=== PATIENT | male | born 1990 | race Caucasian/White ===

== ENCOUNTER 2017-11-09 20:34 | Emergency (ER) | payer OTHER ==
[2017-11-09 21:14] VITALS: BP 148/89; PULSE 70; RESP 16; TEMP 98.4
--- NOTE | 2017-11-09 21:28 | ED ---
Skin/Abscess/FB HPI - General Chief complaint: Skin/Abscess/Foreign Body Stated complaint: bump on neck Time Seen by Provider: 11/09/17 21:16 Source: patient, RN notes reviewed Mode of arrival: ambulatory Limitations: no limitations - History of Present Illness Initial comments: This is a 26-year-old male who presents to the emergency department with chief complaint of bump on neck. Patient states that on his drive to the emergency department he noticed a bump on the left side of his neck. He states he has not noticed this before. He denies any recent fevers or chills, cough, sore throat, ear pain, chest pain or shortness of breath, abdominal pain, nausea or vomiting. States that the bump is not painful, only becoming painful when he pushes really hard. - Related Data Previous Rx's Medication Instructions Recorded Cyclobenzaprine [Flexeril] 10 mg PO TID #15 tab 02/01/17 Ibuprofen [Motrin] 600 mg PO Q8HR PRN #30 tab 02/01/17 Allergies Allergy/AdvReac Type Severity Reaction Status Date / Time No Known Allergies Allergy Verified 11/09/17 21:14 Review of Systems ROS Statement: Those systems with pertinent positive or pertinent negative responses have been documented in the HPI. ROS Other: All systems not noted in ROS Statement are negative. Past Medical History Past Medical History: No Reported History History of Any Multi-Drug Resistant Organisms: None Reported Past Surgical History: No Surgical Hx Reported Past Psychological History: No Psychological Hx Reported Smoking Status: Never smoker Past Alcohol Use History: Occasional Past Drug Use History: None Reported General Exam - General Exam Comments Initial Comments: General: Awake and alert, well-developed; in no apparent distress. HEENT: Head atraumatic, normocephalic. Pupils are equal, round and reactive to light. Extraocular movements intact. Oropharynx moist without erythema or exudate. Neck: Supple. Normal ROM. Firm, mobile mass measuring approximately 1 cm in diameter left posterior neck at hairline. Cardiovascular: Regular rate and rhythm. No murmurs, rubs or gallops. Chest symmetrical. Respiratory: Lungs clear to auscultation bilaterally. No wheezes, rales or rhonchi. Normal respiratory effort with no use of accessory muscles. Musculoskeletal: Normal ROM, no tenderness bilateral upper and lower extremities. Ambulating normally. Skin: [place], warm and dry without rashes or lesions. Neurological: Alert and oriented x3. CN II-XII grossly intact. Speech is fluent and answers are appropriate. No focal neuro deficits. Psychiatric: Normal mood and affect. No overt signs of depression or anxiety noted. Limitations: no limitations Course Vital Signs 11/09/17 21:12 Temperature 98.4 F Pulse Rate 70 Respiratory 16 Rate Blood Pressure 148/89 O2 Sat by Pulse 99 Oximetry Medical Decision Making - Medical Decision Making This is a 26-year-old male who presents to the emergency department with chief complaint of neck lump. Patient has a firm, small mass posterior left neck at the hairline. Likely occipital lymphadenopathy. Patient has no other complaints. Recommended following up with primary care provider for reevaluation. Patient's vital signs are stable and he is in no acute distress. He is in agreement with plan and voices understanding. All questions were answered. Disposition Clinical Impression: Occipital lymphadenopathy Disposition: HOME SELF-CARE Condition: Good Instructions: Lymphadenopathy (ED) Additional Instructions: As discussed, please follow-up with a primary care provider for reevaluation. Return to emergency department if symptoms should worsen or any concerns arise. Is patient prescribed a controlled substance at d/c from ED?: No Referrals: None,Stated [Primary Care Provider] - 1-2 days Freda Baird MD [STAFF PHYSICIAN] - 1-2 days Selam Miranda MD [STAFF PHYSICIAN] - 1-2 days Jakub Todd MD [STAFF PHYSICIAN] - 1-2 days Time of Disposition: 21:38
== END 2017-11-09 21:42 | disposition home or self-care (01) ==
LOC: EC 20:34
DX: R59.0 Localized enlarged lymph nodes (principal)
CPT/HCPCS: 99283